=== PATIENT | male | born 1995 | race Caucasian/White ===

== ENCOUNTER 2020-02-20 11:06 | Emergency (ER) | payer OTHER ==
[~2020-02-20] VITALS: Ht 175.3 cm; Wt 74.8 kg
[2020-02-20] MEDS ORDERED: MELOXICAM15 MG PO (11:24)
[2020-02-20] MEDS ORDERED: PREDNISONE50 MG PO (11:24)
[2020-02-20 11:32] VITALS: BP 120/72
== END 2020-02-20 11:33 | disposition home or self-care (01) ==
LOC: M.ERS 11:06
DX: G56.03 Carpal tunnel syndrome, bilateral upper limbs (principal)